=== PATIENT | female | born 1945 | race Caucasian/White ===

== ENCOUNTER 2021-10-28 07:46 | Day surgery (SDC) | payer OTHER ==
[~2021-10-28] VITALS: Ht 157.5 cm; Wt 59.0 kg
[2021-10-28] MEDS ORDERED: INDOMETHACIN 50 MG SUPP.RECT RC ONE (08:45)
[2021-10-28] MEDS ORDERED: NACL 0.9% 1,000 ML IV SCH (10:30)
[2021-10-28] MEDS ORDERED: MEPERIDINE HCL/PF 25 MG/ML DISP.SYRIN IVP PRN (10:30)
[2021-10-28] MEDS ORDERED: METOCLOPRAMIDE HCL 10 MG/2 ML VIAL ONE (10:47)
[2021-10-28] MEDS ORDERED: SUGAMMADEX SODIUM 200 MG/2 ML VIAL IV ONE (10:47)
[2021-10-28] MEDS ORDERED: ROCURONIUM BROMIDE 10 MG/ML (ZEMURON) ONE (10:47)
[2021-10-28] MEDS ORDERED: DEXAMETHASONE SOD PHOSPHATE 4 MG/ML VIAL ONE (10:47)
[2021-10-28] MEDS ORDERED: NS 1000 ML IV.SOLN IV ONE (10:47)
[2021-10-28] MEDS ORDERED: NS IRRIG SOLN 1000 ML IR ONE (10:47)
[2021-10-28] MEDS ORDERED: ONDANSETRON HCL 4 MG/2 ML VIAL ONE (10:47)
[2021-10-28] MEDS ORDERED: PHENYLEPHRINE HCL 10 MG/ML VIAL (NEOSYNEPHRINE) ONE (10:47)
[2021-10-28] MEDS ORDERED: PROPOFOL 200MG/ 20ML VIAL (DIPRIVAN) IV ONE (10:47)
[2021-10-28] MEDS ORDERED: DESFLURANE 15 MIN GAS INH ONE (10:47)
[2021-10-28 14:34] VITALS: BP_SYST 126
== END 2021-10-28 12:00 | disposition home or self-care (01) ==
LOC: SDS 07:46 → SMU 07:47 → SDS 12:00
PROVIDERS: ATTEND Internal Medicine Gastroenterology
DX: K83.1 Obstruction of bile duct (principal); C25.9 Malignant neoplasm of pancreas, unspecified; Z20.822 Contact with and (suspected) exposure to COVID-19; Z01.810 Encounter for preprocedural cardiovascular examination
CPT/HCPCS: 36415; 43276; 93005; 71045; 74328; U0003; G0378; J3490; J1100; J2765; J2405; J2370; J2704; Q9967; J7030; 43274; 76000